=== PATIENT | male | born 1975 | race Caucasian/White ===

== ENCOUNTER → 2017-11-23 08:18 | Outpatient (CLI) | payer MEDICARE, SELFPAY ==
[2017-11-23 13:13] LABS: Cholesterol 213 mg/dL (200); Glucose 81 mg/dL (74-106); High Density Lipoprotein 48 mg/dL; Thyroid Stim Hormone (TSH) 2.06 uIU/mL (0.358-3.74); Triglycerides 87 mg/dL; Very Low Density Lipoprotein 17 mg/dL (5-40)
== END ==
PROVIDERS: Family Provider Family Medicine; PCP Family Medicine; Visit Provider Family Medicine
DX: E78.5 Hyperlipidemia, unspecified (principal); Z13.1 Encounter for screening for diabetes mellitus; Z13.220 Encounter for screening for lipoid disorders
CPT/HCPCS: 36415; 80061; 82947; 84443

== ENCOUNTER 2017-12-17 06:04 | Day surgery (SDC) | payer MEDICARE, SELFPAY ==
[2017-12-17 06:42] VITALS: BP 142/92; PULSE 67; RESP 16; TEMP 36.3; O2SAT 96; BMI 27.6
[2017-12-17 08:27] VITALS: BP 115/90; BP 142/92; PULSE 62; RESP 18; TEMP 36.1; O2SAT 96
[2017-12-17 08:35] VITALS: BP 119/87; BP 142/92; PULSE 62; RESP 18; O2SAT 97
[2017-12-17 08:40] VITALS: BP 119/85; BP 142/92; PULSE 61; RESP 18; O2SAT 98
[2017-12-17 08:45] VITALS: BP 111/90; BP 142/92; PULSE 62; RESP 18; TEMP 36.3; O2SAT 99
--- NOTE | 2017-12-17 08:59 | PCM.OPRPT ---
Report of Operation Date of Procedure: 12/17/17 Pre-Operative Diagnosis: Blood per rectum, hemorrhoids Post-Operative Diagnosis: Mild external hemorrhoids, internal hemorrhoids grade 1 Surgery/Procedure Performed:: Colonoscopy Type of Anesthesia:: MAC Specimen's removed: None Estimated Blood Loss (mL): None Description of Procedure: Procedure: Colonoscopy After reviewing the risks benefits, the patient was deemed in satisfactory condition to undergo procedure. After obtaining informed consent, the scope was passed under direct visualization. Throughout the procedure, the patient's blood pressure pulse and position saturations were monitored continuously anesthesia. The colonoscope was introduced through the anus and advanced to the cecum, identified by the appendiceal orifice, IC valve and transillumination. The colonoscopy was performed without difficulty. The patient tolerated procedure well. Quality of bowel prep was good. Findings: The perianal and digital rectal exam revealed mild external and internal hemorrhoids. The colon (entire examined portion) appeared normal. Retroflexed view of the distal rectum and anal verge revealed mild grade 1 internal hemorrhoids Impression: 1. The entire colon is normal. 2. Mild external and internal hemorrhoids-grade 1 Recommendations: Recommend patient either trying to increase fiber if possible or take stool softener to improve his hard stools. Repeat colonoscopy in 10 years for screening purposes - Complications None
[2017-12-17 09:00] VITALS: BP 142/92
== END 2017-12-17 09:16 | disposition home or self-care (01) ==
LOC: EN 06:04 → AC 06:07
PROVIDERS: Family Provider Family Medicine; PCP Family Medicine; Visit Provider Surgery
PROC: 0DJD8ZZ Inspection of Lower Intestinal Tract, Via Natural or Artificial Opening Endoscopic (ICD-10-PCS; CPT 45378; principal; 2017-12-17 07:55)
DX: K64.0 First degree hemorrhoids (principal); K64.4 Residual hemorrhoidal skin tags
CPT/HCPCS: 45378; J7120

== ENCOUNTER → 2019-10-08 16:28 | Outpatient (CLI) | payer MEDICARE, SELFPAY ==
--- NOTE | 2019-10-08 16:36 | RAD_ITS ---
STUDY: X-RAY - UNILATERAL RIBS ( RIGHT ) WITH CHEST REASON FOR EXAM: Male, 44 years old. Pain TECHNIQUE - RIBS: 4 view(s) of the ribs. TECHNIQUE - CHEST: Frontal view the chest COMPARISON: X-ray chest October 13, 2013 FINDINGS - RIBS: There are no displaced rib fractures identified. Partial right seventh rib resection noted. FINDINGS - CHEST: The lungs are clear. There are no pleural effusions. There is no pneumothorax. The heart is normal in size. RAD/Ribs Uni Min 3V w/PA Chest IMPRESSION: RIBS: No displaced rib fracture identified. Partial right seventh rib resection CHEST: Clear lungs. Electronically Signed: Mathew Kay, at 19:56 EST Tel , Service support ,
== END ==
PROVIDERS: PCP Family Medicine; Referring Provider Family Medicine; Visit Provider Family Medicine
DX: R07.81 Pleurodynia (principal)
CPT/HCPCS: 71101

== ENCOUNTER → 2019-10-18 | Outpatient (CLI) | payer MEDICARE, SELFPAY ==
--- NOTE | 2019-10-18 08:38 | US_ITS ---
STUDY: ABDOMINAL ULTRASOUND - RIGHT UPPER QUADRANT REASON FOR VISIT: Male, 44 years old abdominal pain. TECHNIQUE: Ultrasound evaluation of the right upper quadrant was performed with real-time and static thompson-scale imaging. TECHNICAL QUALITY: Adequate. COMPARISON: CT abdomen and pelvis without contrast 07/28/2017. FINDINGS: Liver: The liver measures 16.1 cm. Increased echogenicity due to fatty infiltration. The bile ducts are within normal limits. There is hepatic color flow. The direction of portal flow is hepatopetal. There is no demonstrated mass lesion. Gallbladder: Normal distended gallbladder. The gallbladder wall measures 2.6 mm. There is a negative sonographic Montemayor''s sign. There is no pericholecystic fluid. There are no gallstones. Common Bile Duct (C.B.D.): The common bile duct measures 1.8 mm. Pancreas: Normal size of the head, body and tail of the pancreas. There is normal echogenicity of the pancreas. There is no demonstrated pancreatic mass or cyst. The pancreatic duct is not dilated. Right Kidney: Normal size of the right kidney. The right kidney measures 11.5 x 5.3 x 6.1 cm. Normal renal cortex. The right cortex measures 2.1 cm. There is no demonstrated renal mass or cyst. There is no right hydronephrosis. US/Abdomen Limited IMPRESSION: 1. Mild hepatic steatosis unchanged when compared to CT abdomen of 07/28/2017. 2. Otherwise normal ultrasound of the right upper quadrant of the abdomen. Electronically Signed: Joey Schmidt MD at 10:58 EST , Service support ,
== END | disposition home or self-care (01) ==
LOC: US 08:35
PROVIDERS: PCP Family Medicine; Referring Provider Family Medicine; Visit Provider Family Medicine
DX: R07.81 Pleurodynia (principal); R10.11 Right upper quadrant pain
CPT/HCPCS: 76705

== ENCOUNTER → 2020-03-12 | Outpatient (CLI) | payer OTHER, SELFPAY ==
[2020-03-01 08:25] VITALS: BMI 27.0
--- NOTE | 2020-03-12 08:00 | RAD_ITS ---
STUDY: X-RAY - LEFT ELBOW REASON FOR EXAM: Male, 44 years old. F/U LEFT ELBOW INJURY, PATIENT FELL 3 WEEKS AGO. HX OF LEFT ARM INJURY MANY YRS AGO PER PATIENT. TECHNIQUE: 3 view(s) of the elbow. COMPARISON: February 23, 2020. FINDINGS: Normal visualized humerus and ulna. A radial head fracture is visualized similar in alignment and approximation as previous study. Normal radiocapitellar and ulnotrochlear articulations. The soft tissue structures are unremarkable. RAD/Elbow min 3 Views IMPRESSION: Radial head fracture is still visible. Electronically Signed: Jay Jay Villagomez DO at 15:58 EDT Tel [phone], Service support ,
== END | disposition home or self-care (01) ==
LOC: HPRAD 08:00
PROVIDERS: PCP Family Medicine; Referring Provider Orthopaedic Surgery; Visit Provider Orthopaedic Surgery
DX: S59.902A Unspecified injury of left elbow, initial encounter (principal)
CPT/HCPCS: 73080

== ENCOUNTER → 2020-03-12 | Outpatient (CLI) | payer MEDICARE, SELFPAY ==
[2020-03-01 08:25] VITALS: BMI 27.0
[2020-03-12 08:17] VITALS: BMI 27.6
--- NOTE | 2020-03-12 13:40 | MRI_ITS ---
STUDY: MRI UPPER EXTREMITY LEFT FOREARM WITH AND WITHOUT CONTRAST REASON FOR EXAM: Male, 44 years old. Abnormality LEFT proximal radial shaft/head seen on xrays. Pain and decreased ROM of LEFT forearm. Injury February TECHNIQUE: Standardized fat and water weighted pulse sequences were obtained in all 3 orthogonal planes, pre-and post contrast administration. 17ml Dotarem via IV was administered for the contrast portion of the examination. COMPARISON: None. FINDINGS: Normal subcutis adipose space, without subcutis adipose space edema. There is no solid, cystic or lipomatous mass lesion. Normal flexor and extensor muscles and tendons of the forearm and wrist. Normal interosseous membrane. Nondisplaced oblique fracture of the anterior aspect of the radial head and neck. Associated joint effusion consistent with hemarthrosis. Healed fracture of the proximal shaft of the radius. There is no abnormal contrast enhancement. MRI/Upper Ext No Joint W/WO Cont IMPRESSION: Acute nondisplaced oblique fracture of the anterior aspect of the radial head with hemarthrosis per Electronically Signed: Juan Iglesias MD at 15:38 EDT Tel , Service support ,
== END | disposition home or self-care (01) ==
LOC: MRI 13:40
PROVIDERS: PCP Family Medicine; Referring Provider Orthopaedic Surgery; Visit Provider Orthopaedic Surgery
DX: C40.02 Malignant neoplasm of scapula and long bones of left upper limb (principal)
CPT/HCPCS: 73220; A9575

== ENCOUNTER → 2020-03-26 | Outpatient (CLI) | payer MEDICARE, SELFPAY ==
[2020-03-26 07:49] VITALS: BMI 27.6
--- NOTE | 2020-03-26 08:10 | RAD_ITS ---
STUDY: X-RAY - LEFT ELBOW REASON FOR EXAM: Male, 44 years old. Injury 4 weeks ago. Pain. TECHNIQUE: 3 view(s) of the elbow. COMPARISON: Left elbow, March 12, 2020. FINDINGS: Normal visualized humerus and ulna. There is evidence of partial healing of the radial head fracture. Normal radiocapitellar and ulnotrochlear articulations. The soft tissue structures are unremarkable. RAD/Elbow min 3 Views IMPRESSION: Partial healing of the radial head fracture seen on the prior study. Electronically Signed: Vitaliy Ivory DO at 23:06 EDT Tel [phone], Service support ,
== END | disposition home or self-care (01) ==
LOC: HPRAD 08:10
PROVIDERS: PCP Family Medicine; Referring Provider Orthopaedic Surgery; Visit Provider Orthopaedic Surgery
DX: S59.902A Unspecified injury of left elbow, initial encounter (principal)
CPT/HCPCS: 73080

== ENCOUNTER → 2020-04-05 | Outpatient (CLI) | payer OTHER, SELFPAY ==
[2020-03-26 07:49] VITALS: BMI 27.6
--- NOTE | 2020-04-05 09:45 | RAD_ITS ---
STUDY: X-RAY - LEFT ELBOW REASON FOR EXAM: Male, 44 years old. Persistent pain, known fracture TECHNIQUE: 3 view(s) of the elbow. COMPARISON: 03/26/2020 FINDINGS: Some subtle healing has occurred in the previously described fracture at the radial head. No new fracture identified. No demonstrated fracture in the distal humerus or proximal ulna. Persistent soft tissue swelling. RAD/Elbow min 3 Views IMPRESSION: Healing radial head fracture with subtle soft tissue swelling. Follow-up recommended to assure complete osseous union Electronically Signed: Isaiah Ireland MD at 10:04 EDT , Service support ,
== END | disposition home or self-care (01) ==
LOC: HPRAD 09:45
PROVIDERS: PCP Family Medicine; Referring Provider Orthopaedic Surgery; Visit Provider Orthopaedic Surgery
DX: S59.902D Unspecified injury of left elbow, subsequent encounter (principal)
CPT/HCPCS: 73080

== ENCOUNTER 2021-09-02 14:22 | Outpatient (CLI) | payer MEDICARE, SELFPAY ==
[2021-09-02 14:33] VITALS: BP 155/99; PULSE 82; RESP 16; TEMP 525.9; TEMP 978.7; BMI 27.8
[2021-09-02] MEDS: 0.9% Saline Lock 10 ML Syringe IV (14:55)
[2021-09-02 15:12] VITALS: BP 137/87; PULSE 66; RESP 16; TEMP 37.2; O2SAT 97
[2021-09-02 16:12] VITALS: BP 127/95; PULSE 63; RESP 16; TEMP 36.9; O2SAT 100
== END 2021-09-02 16:12 ==
LOC: MS3OUT 14:22 → MS3 14:23
PROVIDERS: PCP Family Medicine; Referring Provider Nurse Practitioner Adult Health; Visit Provider Nurse Practitioner Adult Health
DX: Z23 Encounter for immunization (principal); U07.1 COVID-19
CPT/HCPCS: J7050; M0245; Q0245; A4216

== ENCOUNTER → 2023-05-07 | Outpatient (CLI) | payer MEDICARE, SELFPAY ==
[2023-05-07 12:48] LABS: Absolute Lymphocyte Count 1.37 X10^3/uL (0.83-4.51); Basophil# 0.04 X10^3/uL; Basophil% 0.6 % (0-1); Eosinophil# 0.11 X10^3/uL; Eosinophils% 1.6 % (0-5); Hematocrit 49.9 % (40-54); Hemoglobin 16.2 g/dL (13.0-16.5); Lymphocyte # 1.37 X10^3/ul (0.83-4.51); Lymphocyte % 19.5 % (19-41); Mean Corp Hgb Conc 32.5 g/dL (32-36); Mean Corpuscular Hgb 28.6 pg (27.0-32.0); Mean Corpuscular Volume 88.2 fL (80-94); Mean Platelet Vol. 10.8 fl (6.2-12.0); Monocyte% 7.1 % (0-10); NRBC Flagged by Analyzer 0 % (0-5); Neutrophil # 4.98 X10^3/uL (2.7-7.7); Neutrophil % 70.9 % (47-70); Platelet Count 223 K/mm3 (150-450); RBC Distribution Width CV 12.3 % (11.6-14.6); RBC Distribution Width SD 39.2 fl (35.1-43.9); Red Blood Count 5.66 M/mm3 (4.6-6.2)
[2023-05-07 13:49] LABS: ALB/GLOB Ratio 0.8 RATIO (0.9-2.4); AST(SGOT) 97 U/L (15-37); Alanine Aminotransfer ALT/SGPT 257 U/L (16-61); Albumin, Serum 3.5 g/dL (3.2-5.0); Alkaline Phosphatase 66 U/L (45-117); Anion Gap 7 (5-15); BUN 12 mg/dL (7-18); BUN/Creat Ratio 15.3 RATIO (10-20); Calcium,Total 9.3 mg/dL (8.5-10.1); Chloride 106 mmol/L (98-107); Cholesterol 214 mg/dL (200); Creatinine, Serum 0.78 mg/dL (0.70-1.30); EST Glomerular Filtration Rate 112 mL/min (>60); Est Glom Filt Rate - Afr Amer 136 mL/min (>60); Globulin 4.6 g/dL (2.2-4.2); Glucose 100 mg/dL (74-106); High Density Lipoprotein 40 mg/dL; Potassium 3.9 mmol/L (3.5-5.1); Protein, Total 8.1 g/dL (6.4-8.2); Sodium Level 137 mmol/L (136-145); Triglycerides 229 mg/dL; Very Low Density Lipoprotein 46 mg/dL (5-40)
== END | disposition home or self-care (01) ==
LOC: BFHLAB 09:50
PROVIDERS: PCP Nurse Practitioner Family; Referring Provider Nurse Practitioner Family; Visit Provider Nurse Practitioner Family
DX: I10 Essential (primary) hypertension (principal); E78.5 Hyperlipidemia, unspecified; E55.9 Vitamin D deficiency, unspecified
CPT/HCPCS: 36415; 80053; 80061; 82306; 85025